=== PATIENT | male | born 2000 | race Two or more races ===

== ENCOUNTER 2019-06-22 14:58 | Emergency (ER) | payer SELFPAY ==
[~2019-06-22] VITALS: Ht 162.6 cm; Wt 59.9 kg
--- NOTE | 2019-06-22 15:00 | NUR ---
[id number], c/o sorethroat x 3 days, fever yesterday, afebrile at this time. RR is even and unlabored with nad noted. skin is warm and dry. Awaiting md for eval.
[2019-06-22] MEDS ORDERED: DEXAMETHASONE SOD PHOSPHATE 10 MG/ML VIAL IV ONE (16:30)
[2019-06-22] MEDS ORDERED: IV NS 0.9% 1,000 ML BAG IV ONE (16:30)
[2019-06-22] MEDS ORDERED: KETOROLAC TROMETHAMINE INJ 30 MG/ML VIAL IV ONE (16:30)
[2019-06-22] MEDS ORDERED: DEXAMETHASONE SOD PHOSPHATE 10 MG/ML VIAL ONE (16:33)
[2019-06-22] MEDS ORDERED: KETOROLAC TROMETHAMINE INJ 30 MG/ML VIAL ONE (16:33)
--- NOTE | 2019-06-22 17:11 | NUR ---
Report given to AGUILA KIM for MARY.
[2019-06-22 17:53] VITALS: BP 128/69
--- NOTE | 2019-06-22 17:53 | NUR ---
IV removed. Catheter intact and site benign. Pressure and 4x4 applied to site. No bleeding noted. Patient discharged to home in stable condition. Written and verbal after care instructions given. Patient verbalizes understanding of instruction.
== END 2019-06-22 17:53 | disposition home or self-care (01) ==
LOC: ER 15:03
DX: J10.1 Influenza due to other identified influenza virus with other respiratory manifestations (principal); R13.10 Dysphagia, unspecified; B97.89 Other viral agents as the cause of diseases classified elsewhere
CPT/HCPCS: 87070; 87804 ×2; 87880; 96374; 96375; 99283; J1100; J1885; J7030; 86403-TC